=== PATIENT | male | born 1940 | race Caucasian/White ===

== ENCOUNTER 2021-04-19 05:14 | Day surgery (SDC) | payer MEDICARE, OTHER ==
[2021-04-12 14:47] LABS: BASOPHILS % (AUTO) 0.7 % (0-1); EOSINOPHILS # (AUTO) 0.2 X10'3 (0-0.9); LYMPHOCYTES # (AUTO) 1.2 X10'3 (1.1-4.8); MEAN CORPUSCULAR HEMOGLOBIN 32.6 PG (27.0-31.0); MEAN CORPUSCULAR HGB CONC 33.3 g/dL (33.0-36.5); MEAN CORPUSCULAR VOLUME 97.9 FL (78-98); MEAN PLATELET VOLUME 8.3 FL (7.4-10.4); MONOCYTES # (AUTO) 0.4 X10'3 (0-0.9); MONOCYTES % (AUTO) 6.8 % (2-12); NEUTROPHILS # (AUTO) 4.1 X10'3 (1.8-7.7); NEUTROPHILS % (AUTO) 69.5 % (42-75); PRE OP HEMATOCRIT 34.1 % (42.0-52.0); PRE OP HEMOGLOBIN 11.4 g/dL (14.0-17.9); PRE OP PLATELET COUNT 171 X10'3 (140-440); RED BLOOD COUNT 3.49 X10'6 (4.70-6.10); RED CELL DISTRIBUTION WIDTH 14.3 % (11.5-14.5)
[2021-04-12 14:52] LABS: BLOOD UREA NITROGEN 56 MG/DL (7-18); BUN/CREATININE RATIO 12.9 (5.4-32.0); CHLORIDE 109 MMOL/L (99-107); CREATININE 4.35 MG/DL (0.60-1.10); PRE OP ANION GAP 12 (8-16); PRE OP GLUCOSE 93 MG/DL (70-104); PRE OP SODIUM 143 MMOL/L (135-145); TOTAL CARBON DIOXIDE 22.4 MMOL/L (24-32)
[2021-04-12 14:53] LABS: ALBUMIN 3.7 G/DL (3.4-5.0); ALBUMIN/GLOBULIN RATIO 1.2 (1.1-1.5); ALKALINE PHOSPHATASE 87 IU/L (46-116); CALCIUM 8.6 MG/DL (8.5-10.1); PRE OP ALT 26 U/L (30-65); PRE OP AST 21 U/L (10-37); PRE OP BILIRUB, TOTAL 0.3 MG/DL (0.0-1.0); TOTAL PROTEIN 6.9 G/DL (6.4-8.2); eGFR 13 ML/MIN
[2021-04-12 14:59] LABS: PRE OP POTASSIUM 6.3 MMOL/L (3.4-5.1)
[2021-04-19] VITALS (10 sets, daily range): BP systolic 135–155; BP diastolic 75–91
[~2021-04-19] VITALS: Ht 200.7 cm; Wt 111.1 kg
[~2021-04-19 05:14] MED LIST: ASPI-611 PO; ATEN50TA41 PO; ATOR-2 PO; BICA50TA48 PO; D3; EZET10TA6 PO; FLO0.4C; LABE200T5; LEUP3.753 IM; LEVO5TAB13 PO; MINO2.5T19; OMEG-79 PO; OMEP40CA21 PO; SPECTRAVITE; UBID30CA11 PO; ringers solution, lacted 1,000 ML IV SCH
[2021-04-19] MEDS ORDERED: DOCUMENT DATE & TIME OF BETA-BLOCKER PO ONE (05:30)
[2021-04-19] MEDS ORDERED: famotidine 20mg tablet PO ONE (05:30)
[2021-04-19] MEDS ORDERED: cefazolin/dext.iso 2gm/100ml IV ONE (05:30)
[2021-04-19] MEDS ORDERED: LIDOcaine 1% (10mg/ml) 2ml vial ONE (05:53)
[2021-04-19] MEDS ORDERED: LIDOcaine 1% 30ml preserv. free vial ONE (06:40)
[2021-04-19] MEDS ORDERED: BUPIVAcaine/PF 2.5mg/ml (0.25%) 10ml vial ONE (06:40)
[2021-04-19] MEDS ORDERED: rocuronium 10mg/ml inj IV ONE (07:37)
[2021-04-19] MEDS ORDERED: midazolam 1 mg/ML 2ml injection ONE (07:37)
[2021-04-19] MEDS ORDERED: propofol inj 20 ML IV ONE (07:37)
[2021-04-19] MEDS ORDERED: fentaNYL/PF 50MCG/1 ML 2ML syringe ONE (07:37)
[2021-04-19] MEDS ORDERED: sevoflurane 250ml liquid IH ONE (07:42)
[2021-04-19] MEDS ORDERED: PHENYLephrine 10mg/ml 5ml injection IV ONE (07:42)
[2021-04-19] MEDS ORDERED: morphine 4 MG/ML inj SYRINge IV PRN (07:45)
[2021-04-19] MEDS ORDERED: proCHLORperazine 10 MG/2 ml inj IV PRN (07:45)
[2021-04-19] MEDS ORDERED: ondansetron/PF 4mg/2ml inj IV PRN (07:45)
[2021-04-19] MEDS ORDERED: morphine 2 MG/ML inj. syringe IV PRN (07:45)
[2021-04-19] MEDS ORDERED: meperidine/PF 25mg/ml syringe IV PRN ×3 (07:45)
[2021-04-19] MEDS ORDERED: ringers solution, lacted 1,000 ML IV SCH (07:45)
[2021-04-19] MEDS ORDERED: dexamethasone sod phosphate 4mg/ml inj. ONE (07:56)
[2021-04-19] MEDS ORDERED: ePHEDrine 50MG/ML INJ. ONE (08:00)
[2021-04-19] MEDS ORDERED: ondansetron/PF 4mg/2ml inj ONE (08:51)
[2021-04-19] MEDS ORDERED: sugammadex 200mg/2ml injection IV ONE (08:52)
--- NOTE | 2021-04-19 09:10 | NUR ---
ADMITTED TO PACU FROM OR ACCOMPANIED BY ANESTHESIA. INTIAL PHYSICAL ASSESSMENT DONE AND RECORDED. REPORT RECEIVED FROM ANESTHESIA.
[2021-04-19] MEDS ORDERED: HYDROcodone/acetaminophen 5mg/325mg tablet PO PRN (09:15)
--- NOTE | 2021-04-19 10:45 | NUR ---
DISCHARGE CRITERIA MET, DISCHARGE INSTRUCTIONS GIVEN, DEMONSTRATES VERBAL UNDERSTANDING. DISCHARGED HOME IN GOOD CONDITION.
== END 2021-04-19 10:45 | disposition home or self-care (01) ==
LOC: PAS 05:14
PROVIDERS: ATTEND Surgery
DX: K40.90 Unilateral inguinal hernia, without obstruction or gangrene, not specified as recurrent (principal); K42.0 Umbilical hernia with obstruction, without gangrene; N40.0 Benign prostatic hyperplasia without lower urinary tract symptoms; K21.9 Gastro-esophageal reflux disease without esophagitis; I25.2 Old myocardial infarction; I12.9 Hypertensive chronic kidney disease with stage 1 through stage 4 chronic kidney disease, or unspecified chronic kidney disease; N18.4 Chronic kidney disease, stage 4 (severe); I48.91 Unspecified atrial fibrillation; Z88.2 Allergy status to sulfonamides; Z79.899 Other long term (current) drug therapy; Z79.82 Long term (current) use of aspirin; Z85.46 Personal history of malignant neoplasm of prostate; Z95.0 Presence of cardiac pacemaker; Z98.890 Other specified postprocedural states; Z20.822 Contact with and (suspected) exposure to COVID-19; Z86.14 Personal history of Methicillin resistant Staphylococcus aureus infection
CPT/HCPCS: 36415; 49587; 49650; 80053; 85025; 93005; C1781; C9399; J1100; J2001; J2250; J2370; J2405; J2704; J3010; J3490; U0003; U0005; Z7506; Z7508; Z7512; A4215; A4618; J7120

== ENCOUNTER 2022-10-23 08:23 | Day surgery (SDC) | payer MEDICARE, OTHER ==
[2022-10-23] VITALS (8 sets, daily range): BP systolic 124–156; BP diastolic 67–93
[~2022-10-23] VITALS: Ht 200.7 cm; Wt 115.3 kg
[~2022-10-23 08:23] MED LIST changes: -LABE200T5; +LABE200T8; -ringers solution, lacted 1,000 ML IV SCH
[2022-10-23] MEDS ORDERED: vancomycin 1,500 MG in NS 300ml IV soln IV ONE (08:47)
[2022-10-23] MEDS ORDERED: cefazolin 2gm/D5W 100mL 100 ML IV ONE (08:47)
[2022-10-23] MEDS ORDERED: normal saline 1,000 ML IV SCH (08:50)
[2022-10-23] MEDS ORDERED: OMEG1CAP61 PO (09:00)
[2022-10-23] MEDS ORDERED: FURO-149 PO (09:03)
[2022-10-23 09:31] LABS: BASOPHILS # (AUTO) 0.1 X10'3 (0-0.2); EOSINOPHILS # (AUTO) 0.4 X10'3 (0-0.9); EOSINOPHILS % (AUTO) 5.5 % (0-6); HEMATOCRIT 27.5 % (42.0-52.0); HEMOGLOBIN 9.1 g/dl (14.0-17.9); LYMPHOCYTES # (AUTO) 1.2 X10'3 (1.1-4.8); LYMPHOCYTES % (AUTO) 17.6 % (21-51); MEAN CORPUSCULAR HEMOGLOBIN 31.9 PG (27.0-31.0); MEAN CORPUSCULAR HGB CONC 33.1 g/dL (33.0-36.5); MEAN CORPUSCULAR VOLUME 96.5 FL (78-98); MEAN PLATELET VOLUME 8.2 FL (7.4-10.4); MONOCYTES # (AUTO) 0.4 X10'3 (0-0.9); MONOCYTES % (AUTO) 6.2 % (2-12); NEUTROPHILS # (AUTO) 4.7 X10'3 (1.8-7.7); NEUTROPHILS % (AUTO) 69.7 % (42-75); PLATELET COUNT 180 X10'3 (140-440); RED BLOOD COUNT 2.85 X10'6 (4.70-6.10); RED CELL DISTRIBUTION WIDTH 13.9 % (11.5-14.5); WHITE BLOOD COUNT 6.7 X10'3 (4.5-11.0)
[2022-10-23 09:37] LABS: ALBUMIN 3.4 G/DL (3.4-5.0); ANION GAP 11 (8-16); BLOOD UREA NITROGEN 62 MG/DL (7-18); BUN/CREATININE RATIO 10.6 (10.0-20.0); CALCIUM 8.8 MG/DL (8.5-10.1); CHLORIDE 109 MMOL/L (99-107); CREATININE 5.83 MG/DL (0.60-1.10); GLUCOSE 105 MG/DL (70-104); MAGNESIUM 2.1 MG/DL (1.5-2.4); POTASSIUM 4.8 MMOL/L (3.5-5.1); SODIUM 143 MMOL/L (135-145); TOTAL CARBON DIOXIDE 22.7 MMOL/L (24-32); eGFR 9 ML/MIN
[2022-10-23] MEDS ORDERED: fentaNYL/PF 50MCG/1 ML 2ML syringe ONE (09:42)
[2022-10-23] MEDS ORDERED: LIDOCAINE 2%/EPI 1:100,000 inj. Multi-dose 20 ML VIAL ONE (09:42)
[2022-10-23] MEDS ORDERED: midazolam 1 mg/ML 2ml injection ONE (09:42)
[2022-10-23] MEDS ORDERED: vancomycin 1,000mg inj ONE (09:42)
[2022-10-23] MEDS ORDERED: normal saline 1000ml 1,000 ML IV SCH (12:10)
[2022-10-23] MEDS ORDERED: HYDROcodone/acetaminophen 10/325mg tab PO PRN (12:10)
[2022-10-23] MEDS ORDERED: HYDROcodone/acetaminophen 5mg/325mg tablet PO PRN (12:10)
== END 2022-10-23 13:05 | disposition home or self-care (01) ==
LOC: SSTAY O 08:23
PROVIDERS: ATTEND Internal Medicine Cardiovascular Disease
DX: Z45.010 Encounter for checking and testing of cardiac pacemaker pulse generator [battery] (principal); I49.5 Sick sinus syndrome; I10 Essential (primary) hypertension; I48.91 Unspecified atrial fibrillation; I73.9 Peripheral vascular disease, unspecified; Z88.2 Allergy status to sulfonamides; Z79.899 Other long term (current) drug therapy
CPT/HCPCS: 33228; 36415; 80048; 83735; 85025; 85610; 93005; 99152; 99153; C1785; J2250; J3010; J3370; J7030; C1786

== ENCOUNTER 2022-12-13 10:16 | Day surgery (SDC) | payer MEDICARE, OTHER ==
[2022-12-06 11:07] LABS: BASOPHILS # (AUTO) 0.1 X10'3 (0-0.2); BASOPHILS % (AUTO) 0.7 % (0-1); EOSINOPHILS # (AUTO) 0.3 X10'3 (0-0.9); EOSINOPHILS % (AUTO) 3.8 % (0-6); LYMPHOCYTES # (AUTO) 1.2 X10'3 (1.1-4.8); LYMPHOCYTES % (AUTO) 16.2 % (21-51); MEAN CORPUSCULAR HEMOGLOBIN 31.3 PG (27.0-31.0); MEAN CORPUSCULAR HGB CONC 32.6 g/dL (33.0-36.5); MEAN CORPUSCULAR VOLUME 95.7 FL (78-98); MEAN PLATELET VOLUME 7.9 FL (7.4-10.4); MONOCYTES # (AUTO) 0.5 X10'3 (0-0.9); MONOCYTES % (AUTO) 6.6 % (2-12); NEUTROPHILS # (AUTO) 5.4 X10'3 (1.8-7.7); NEUTROPHILS % (AUTO) 72.7 % (42-75); PRE OP HEMATOCRIT 28.4 % (42.0-52.0); PRE OP PLATELET COUNT 192 X10'3 (140-440); RED BLOOD COUNT 2.97 X10'6 (4.70-6.10); RED CELL DISTRIBUTION WIDTH 14.7 % (11.5-14.5)
[2022-12-06 11:12] LABS: CLARITY,URINE CLEAR (Clear); COLOR,URINE YELLOW (Yellow); GLUCOSE, URINE 100 mg/dl (Neg); KETONES,URINE NEGATIVE (Neg); LEUKOCYTE ESTERASE ,URINE NEGATIVE (Neg); NITRITES, URINE NEGATIVE (Neg); OCCULT BLOOD,URINE SMALL (Neg); PRE OP HEMOGLOBIN 9.3 g/dL (14.0-17.9); PROTEIN,URINE 100 mg/dl (Neg); UROBILINOGEN,URINE 0.2 E.U/dL (0.2-1.0)
[2022-12-06 11:15] LABS: UA COLLECTION TYPE VOIDED
[2022-12-06 11:21] LABS: ALBUMIN 3.5 G/DL (3.4-5.0); ALBUMIN/GLOBULIN RATIO 1.2 (1.1-1.5); ALKALINE PHOSPHATASE 71 IU/L (46-116); BLOOD UREA NITROGEN 57 MG/DL (7-18); CALCIUM 9.2 MG/DL (8.5-10.1); CHLORIDE 108 MMOL/L (99-107); CREATININE 5.69 MG/DL (0.60-1.10); PRE OP ALT 19 U/L (30-65); PRE OP ANION GAP 11 (8-16); PRE OP AST 16 U/L (10-37); PRE OP BILIRUB, TOTAL 0.3 MG/DL (0.0-1.0); PRE OP GLUCOSE 119 MG/DL (70-104); PRE OP POTASSIUM 5.1 MMOL/L (3.4-5.1); PRE OP SODIUM 141 MMOL/L (135-145); TOTAL CARBON DIOXIDE 22.3 MMOL/L (24-32); TOTAL PROTEIN 6.5 G/DL (6.4-8.2); eGFR 10 ML/MIN
[2022-12-06 11:47] LABS: HYALINE CASTS 0-3 /LPF (NEGATIVE)
[2022-12-06 11:48] LABS: CELLULAR CAST 0-4 /LPF (NEGATIVE)
[2022-12-06 11:49] LABS: BACTERIA,URINE FEW /HPF (Neg); RBC,URINE 0-2 /HPF (0-2); SQUAMOUS EPITHELIAL CELL,UR FEW /LPF (FEW); WBC,URINE 0-4 /HPF (0-4)
[~2022-12-13] VITALS: Ht 200.7 cm; Wt 104.3 kg
[2022-12-13] VITALS (10 sets, daily range): BP systolic 124–183; BP diastolic 88–110
[~2022-12-13 10:16] MED LIST changes: -ATEN50TA41 PO; -BICA50TA48 PO; +CHOL100062 PO; -D3; +DOCUMENT DATE & TIME OF BETA-BLOCKER PO ONE; -FLO0.4C; -LABE200T8; +LABE200T8 PO; -LEUP3.753 IM; -MINO2.5T19; -OMEP40CA21 PO; -SPECTRAVITE; -UBID30CA11 PO; +cefazolin 2gm/D5W 100mL 100 ML IV ONE; +famotidine 20mg tablet PO ONE; +normal saline 1000ml 500 ML IV SCH
[2022-12-13] MEDS ORDERED: heparin 10,000 units/1 ML INJ ONE (14:11)
[2022-12-13] MEDS ORDERED: LIDOcaine 1% W/epiNEPHrine 1:100,000 20ml vial ONE (14:12)
[2022-12-13] MEDS ORDERED: BUPIVAcaine/PF 2.5mg/ml (0.25%) 10ml vial ONE (14:12)
[2022-12-13] MEDS ORDERED: fentaNYL/PF 50MCG/1 ML 2ML syringe ONE (14:16)
[2022-12-13] MEDS ORDERED: midazolam 1 mg/ML 2ml injection ONE (14:16)
[2022-12-13] MEDS ORDERED: propofol inj 20 ML IV ONE (14:16)
[2022-12-13] MEDS ORDERED: morphine 2 MG/ML inj. syringe IV PRN (14:30)
[2022-12-13] MEDS ORDERED: ringers solution, lacted 1,000 ML IV SCH (14:30)
[2022-12-13] MEDS ORDERED: proCHLORperazine 10 MG/2 ml inj IV PRN (14:30)
[2022-12-13] MEDS ORDERED: morphine 4 MG/ML inj SYRINge IV PRN (14:30)
[2022-12-13] MEDS ORDERED: ondansetron/PF 4mg/2ml inj IV PRN (14:30)
[2022-12-13] MEDS ORDERED: meperidine/PF 25mg/ml syringe IV PRN ×3 (14:30)
--- NOTE | 2022-12-13 15:46 | NUR ---
Received from OR via , accompanied by Anesthesiologist MIRANDA AND OR NURSE and report given by Anesthesiolgist. PT IS AWAKE AND ALERT AND ABLE TO FOLLOW COMMANDS. REPORTS NO PAIN OR DISCOMFORT. RT WRIST WITH GAUZE AND TAPE; CDI. 20G TO LEFT LOWER ARM. VSS Addendum: 12/13/22 at 1729 by Moni Penny RN Amended: Links added.
--- NOTE | 2022-12-13 17:16 | NUR ---
PT BECAME HYPERTENSIVE TOWARDS BEING READY TO D/C. PT STATES HE NEEDS TO GET HOME AND TAKE HIS HOME MEDS FOR HIS HIGH BP. CONTACTED DR. JEAN AND HE APPROVES PT DISCHARGE. I HAVE REVIEWED D/C INSTRUCTIONS WITH PATIENT AND THEY HAVE VERBALIZED UNDERSTANDING OF INSTRUCTIONS. PATIENT D/C HOME WITH ALL BELONGINGS AND FAMILY GAVE TRANSPORT Addendum: 12/13/22 at 1739 by Moni Penny RN Amended: Links added.
== END 2022-12-13 17:16 | disposition home or self-care (01) ==
LOC: PAS 10:16
PROVIDERS: ATTEND Surgery
DX: I12.0 Hypertensive chronic kidney disease with stage 5 chronic kidney disease or end stage renal disease (principal); N18.6 End stage renal disease; I48.92 Unspecified atrial flutter; N40.0 Benign prostatic hyperplasia without lower urinary tract symptoms; D63.8 Anemia in other chronic diseases classified elsewhere; Z98.890 Other specified postprocedural states; Z96.653 Presence of artificial knee joint, bilateral; Z95.0 Presence of cardiac pacemaker; Z86.14 Personal history of Methicillin resistant Staphylococcus aureus infection; Z88.2 Allergy status to sulfonamides; Z91.048 Other nonmedicinal substance allergy status; Z79.899 Other long term (current) drug therapy; Z79.82 Long term (current) use of aspirin; Z85.46 Personal history of malignant neoplasm of prostate; Z83.3 Family history of diabetes mellitus
CPT/HCPCS: 36415; 36821; 80053; 81001; 82948; 85025; J0690; J1644; J2250; J2704; J3010; J7030; J7040; J7120; Z7506; Z7508; Z7512; A4215; A4618; A6258; A7000; J3490

== ENCOUNTER 2024-01-07 06:54 | Day surgery (SDC) | payer MEDICARE, OTHER ==
[2024-01-07] VITALS (13 sets, daily range): BP systolic 103–138; BP diastolic 56–97; PULSE 75–100; RESP 12–18; TEMP 98; O2SAT 96–100
[~2024-01-07] VITALS: Ht 170.2 cm; Wt 108.4 kg
[~2024-01-07 06:54] MED LIST changes: -DOCUMENT DATE & TIME OF BETA-BLOCKER PO ONE; -cefazolin 2gm/D5W 100mL 100 ML IV ONE; -famotidine 20mg tablet PO ONE; -normal saline 1000ml 500 ML IV SCH
[2024-01-07] MEDS: normal saline 1000ml 1,000 ML IV SCH (07:30)
[2024-01-07] MEDS ORDERED: METO-467 PO (07:41)
[2024-01-07] MEDS ORDERED: FURO-149 PO (07:41)
[2024-01-07] MEDS ORDERED: APIX2.5T PO (07:41)
[2024-01-07] MEDS ORDERED: MULT-1085 PO (07:41)
[2024-01-07] MEDS ORDERED: PERFLUTREN PROTEIN-A MICROSPHR (Optison) 0.22 MG/ML 3ML VIAL IV ONE (07:50)
[2024-01-07 08:27] LABS: BASOPHILS # (AUTO) 0.1 X10'3 (0-0.2); BASOPHILS % (AUTO) 1.7 % (0-1); EOSINOPHILS # (AUTO) 0.3 X10'3 (0-0.9); EOSINOPHILS % (AUTO) 3.8 % (0-6); HEMATOCRIT 40.2 % (42.0-52.0); HEMOGLOBIN 13.2 g/dl (14.0-17.9); LYMPHOCYTES # (AUTO) 1.4 X10'3 (1.1-4.8); LYMPHOCYTES % (AUTO) 19.8 % (21-51); MEAN CORPUSCULAR HEMOGLOBIN 34.6 PG (27.0-31.0); MEAN CORPUSCULAR HGB CONC 32.9 g/dL (33.0-36.5); MEAN CORPUSCULAR VOLUME 105.1 FL (78-98); MEAN PLATELET VOLUME 9.3 FL (7.4-10.4); MONOCYTES # (AUTO) 0.4 X10'3 (0-0.9); MONOCYTES % (AUTO) 6.3 % (2-12); NEUTROPHILS # (AUTO) 4.7 X10'3 (1.8-7.7); NEUTROPHILS % (AUTO) 68.4 % (42-75); PLATELET COUNT 146 X10'3 (140-440); RED BLOOD COUNT 3.82 X10'6 (4.70-6.10); RED CELL DISTRIBUTION WIDTH 16.4 % (11.5-14.5); WHITE BLOOD COUNT 6.8 X10'3 (4.5-11.0)
[2024-01-07 08:32] LABS: ALBUMIN 3.5 G/DL (3.4-5.0); ANION GAP 13 (8-16); BLOOD UREA NITROGEN 62 MG/DL (7-18); BUN/CREATININE RATIO 7.9 (10.0-20.0); CALCIUM 9.6 MG/DL (8.5-10.1); CHLORIDE 98 MMOL/L (99-107); CREATININE 7.86 MG/DL (0.60-1.10); GLUCOSE 90 MG/DL (70-104); SODIUM 136 MMOL/L (135-145); TOTAL CARBON DIOXIDE 24.8 MMOL/L (24-32); eCRCL 7 ML/MIN; eGFR 7 ML/MIN
[2024-01-07 08:34] LABS: INR 1.1 INR; PROTHROMBIN TIME 11.3 SECONDS (9.0-12.0)
[2024-01-07 08:36] LABS: POTASSIUM 6.7 MMOL/L (3.5-5.1)
[2024-01-07] MEDS ORDERED: amiodarone 50MG/ML inj IV ONE (09:50)
[2024-01-07] MEDS: amiodarone 150mg/dext, iso-os 200 ML IV ONE (10:04)
[2024-01-07] MEDS: fentaNYL/PF 50MCG/1 ML 2ML syringe IV ONE (10:09)
[2024-01-07] MEDS: MIDAZolam 1mg/ml 10ml vial IV ONE (10:10)
== END 2024-01-07 11:45 | disposition home or self-care (01) ==
LOC: SSTAY O 06:54
PROVIDERS: ATTEND Internal Medicine Cardiovascular Disease
DX: I48.0 Paroxysmal atrial fibrillation (principal); I44.4 Left anterior fascicular block; E78.5 Hyperlipidemia, unspecified; N18.6 End stage renal disease; Z86.73 Personal history of transient ischemic attack (TIA), and cerebral infarction without residual deficits; Z85.46 Personal history of malignant neoplasm of prostate; Z99.2 Dependence on renal dialysis; Z88.2 Allergy status to sulfonamides
CPT/HCPCS: 36415; 80048; 83735; 85025; 85610; 92960; 93005; 94760; C8925; J0282; J2250; J3010; J7030; 93312